=== PATIENT | male | born 1955 | race American Indian/Alaskan Native ===

== ENCOUNTER 2017-03-17 12:45 | Inpatient (IN) | payer MEDICAID ==
[2017-03-17 13:52] LABS: Basophils % (Auto) 0.5 % (0.0-1.8); Eosinophils % (Auto) 0.5 % (0.0-4.3); Hematocrit 43.5 % (35.5-45.6); Mean Corpuscular HGB Conc 34 % (32-34); Mean Corpuscular Hemoglobin 32 pg (28-32); Mean Corpuscular Volume 94 fl (84-94); Platelet Count 152 K/mm3 (140-440); Red Blood Count 4.62 M/mm3 (3.65-5.03); Red Cell Distribution Width 14.4 % (13.2-15.2); White Blood Count 7.9 K/mm3 (4.5-11.0)
[2017-03-17 14:15] LABS: Anion Gap 21 mmol/L; Blood Urea Nitrogen 14 mg/dL (9-20); Carbon Dioxide 21 mmol/L (22-30); Chloride 102.2 mmol/L (98-107); Glucose 97 mg/dL (75-100); Potassium 4.2 mmol/L (3.6-5.0); Sodium 140 mmol/L (137-145)
--- NOTE | 2017-03-17 14:16 | Emergency Department Report ---
<SHELBY HAYWOOD - Last Filed: 03/17/17 19:14> ED Seizure HPI - General Chief Complaint: Seizure Stated Complaint: SEIZURE Time Seen by Provider: 03/17/17 14:11 - Related Data Home Medications Medication Instructions Recorded Confirmed Last Taken No Known Home Medications [No 03/17/17 03/17/17 Unknown Reported Home Medications] Allergies Allergy/AdvReac Type Severity Reaction Status Date / Time No Known Allergies Allergy Unverified 03/17/17 13:12 ED Review of Systems ROS: Stated complaint: SEIZURE Other details as noted in HPI ED Past Medical Hx - Medications Home Medications: Home Medications Medication Instructions Recorded Confirmed Last Taken Type No Known Home Medications [No 03/17/17 03/17/17 Unknown History Reported Home Medications] ED Course Vital Signs 03/17/17 03/17/17 03/17/17 12:56 14:55 15:00 Temperature 98.5 F 98.7 F Pulse Rate 68 61 68 Respiratory 16 16 16 Rate Blood Pressure 142/93 Blood Pressure 165/103 151/106 [Right] O2 Sat by Pulse 100 100 96 Oximetry 03/17/17 03/17/17 03/17/17 17:11 18:00 18:42 Temperature 99.6 F Pulse Rate 67 60 Respiratory 12 14 Rate Blood Pressure Blood Pressure 156/81 165/99 [Right] O2 Sat by Pulse 97 98 98 Oximetry 03/17/17 03/17/17 03/17/17 19:01 20:00 21:00 Temperature Pulse Rate 64 Respiratory 16 Rate Blood Pressure 161/76 156/87 Blood Pressure [Right] O2 Sat by Pulse 97 96 97 Oximetry 03/17/17 22:00 Temperature Pulse Rate Respiratory Rate Blood Pressure 167/85 Blood Pressure [Right] O2 Sat by Pulse 97 Oximetry - Reevaluation(s) Reevaluation #1: 03/17/17 17:31 Patient was signed out to me by Dr. Richardson at 4 PM for follow-up of CAT scan. Patient and family the description of the seizure-like event was most consistent with a seizure. Patient started staring off into space and then had whole-body contractions and then was very confused afterwards as well as incontinent of urine. He slowly came around and started making more sense while in the emergency department. 03/17/17 17:32 At 5 PM the patient started having another very brief seizure-like event versus staring off into space. This appeared to have ended by the time I came to the patient however he was unable to follow commands and was not making sense. He did slowly start improving however since his second seizure 2 mg of Ativan was ordered IV. CT of the head read is still pending. We will plan to admit the patient for new onset seizure pending CT scan read. Reevaluation #2: 03/17/17 18:04 Patient is alert and oriented 2 now. Follows commands appropriately. Still a little confused and postictal. 03/17/17 19:15 CT negative, admitted ED Medical Decision Making - Lab Data Result diagrams: 03/17/17 13:38 03/17/17 13:38 Critical care attestation.: If time is entered above; I have spent that time in minutes in the direct care of this critically ill patient, excluding procedure time. ED Disposition Clinical Impression: New onset seizure Disposition: OP ADMITTED IP TO THIS HOSP Is pt being admited?: Yes Does the pt Need Aspirin: No Condition: Serious Time of Disposition: 18:56 (Spoke to Dr. Coreas, will admit) <CHERYLE RICHARDSON I. - Last Filed: 03/18/17 13:35> ED Seizure HPI - General Source: EMS Mode of arrival: Stretcher Limitations: No Limitations - History of Present Illness Initial Comments: She is a 61-year-old male with no past medical history presenting with seizure. As per the who is at the bedside she reports they were sitting in bed watching TV when she looked over and the patient was looking off into space and then started having a seizure consisting of tonic-clonic movement of all limbs with associated urinary incontinence. Pt is now c/o bilateral temporal WILSON and occipital WILSON. Pt reports he's never had a seizure before and has been feeling his normal self prior to today. Pt does report he did have a bunionectomy 4 months ago and his foot is in the healing process for which he follows with a splitter hand. Otherwise no fevers, chills, dizziness, vision changes, hearing changes, nausea, vomiting, diarrhea, chest pain, trace of breath, abdominal pain , dysuria, back pain, travel, or sick contacts ED Review of Systems Comment: All other systems reviewed and negative ED Past Medical Hx - Past Medical History Previous Medical History?: No - Surgical History Past Surgical History?: Yes Additional Surgical History: bunyon - Social History Smoking Status: Never Smoker Substance Use Type: None ED Physical Exam - General Limitations: No Limitations General appearance: alert, in no apparent distress - Head Head exam: Present: atraumatic, normocephalic - Eye Eye exam: Present: normal appearance, PERRL, EOMI. Absent: scleral icterus, conjunctival injection - ENT ENT exam: Present: mucous membranes moist - Neck Neck exam: Present: normal inspection - Respiratory Respiratory exam: Present: normal lung sounds bilaterally. Absent: respiratory distress - Cardiovascular Cardiovascular Exam: Present: regular rate, normal rhythm. Absent: systolic murmur, diastolic murmur, rubs, gallop - GI/Abdominal GI/Abdominal exam: Present: soft, normal bowel sounds - Rectal Rectal exam: Present: deferred - Extremities Exam Extremities exam: Present: full ROM, other (Pt is s/p L bunionectomy, healing wound of the dorsum of the L foot with antibiotic ointment applied, no signs of cellulitis). Absent: normal inspection, tenderness, pedal edema - Back Exam Back exam: Present: normal inspection - Neurological Exam Neurological exam: Present: alert, oriented X3, CN II-XII intact. Absent: motor sensory deficit - Psychiatric Psychiatric exam: Present: normal affect, normal mood - Skin Skin exam: Present: warm, dry, intact, normal color. Absent: rash ED Medical Decision Making - Lab Data Result diagrams: 03/18/17 06:29 03/17/17 13:38 - EKG Data -: EKG Interpreted by Me (time 13:27) EKG shows normal: sinus rhythm (sinus rhythm with shortened VT interval), axis, intervals (QTC 431 ms), ST-T waves (no ST changes, no STEMI) Rate: normal (66 bpm) ED Disposition Is pt being admited?: Yes
[2017-03-17 14:54] LABS: Bilirubin,Urine NEG (Negative); Blood,Urine MOD (Negative); Ketones,Urine NEG (Negative); Leukocyte Esterase,Urine NEG (Negative); Mucus,Urine FEW /HPF; Nitrite,Urine NEG (Negative); Protein,Urine <15 mg/dL mg/dL (Negative); RBC,Urine < 1.0 /HPF (0.0-6.0); Urobilinogen,Urine < 2.0 mg/dL (<2.0)
[2017-03-17 14:56] LABS: WBC,Urine < 1.0 /HPF (0.0-6.0)
[2017-03-17] MEDS ORDERED: TYLENOL PO ONE (16:15)
[2017-03-17] MEDS ORDERED: ATIVAN ONE (17:02)
[2017-03-17] MEDS ORDERED: ATIVAN IV ONE (17:10)
--- NOTE | 2017-03-17 18:34 | Cat Scan Report ---
FINAL REPORT EXAM: CT HEAD/BRAIN WO CON HISTORY: new seizure TECHNIQUE: CT head without contrast PRIORS: None. FINDINGS: No acute intra-axial or extra-axial hemorrhage is identified. There is no evidence of midline shift or mass effect. The ventricles and sulci are within normal limits. Granado-white matter differentiation is intact. No acute parenchymal abnormalities seen. Bony calvarium is grossly intact. Visualized portions of the mastoids and paranasal sinuses are unremarkable. IMPRESSION: Negative CT head
--- NOTE | 2017-03-17 21:34 | Event Note ---
Date: 03/17/17 See H/p in reports New Onset seizures
[2017-03-17] MEDS ORDERED: DULCOLAX PR PRN (21:35)
[2017-03-17] MEDS ORDERED: TYLENOL PO PRN (21:35)
[2017-03-17] MEDS ORDERED: MILK OF MAGNESIA PO PRN (21:35)
[2017-03-17] MEDS ORDERED: DILAUDID IV PRN (21:35)
[2017-03-17] MEDS ORDERED: ZOFRAN IV PRN (21:35)
[2017-03-17] MEDS: KEPPRA 750 MG in D5W 100 ML IV SCH (23:20)
[2017-03-17] MEDS: D5NS 1,000 ML IV SCH (23:24)
--- NOTE | 2017-03-18 00:34 | Admit Criteria Form ---
Admission Criteria Documentation: SEIZURE Clinical Indications for Admission to Inpatient Care (Place 'X' for any and all applicable criteria): Admission is indicated for seizure and ANY ONE of the following(1)(2)(3)(4)(5): [ ]I. Inpatient admission required rather than observation care (Also use Seizure: Observation Care Criteria as appropriate) because of ANY ONE of the following: [ ]a) Altered mental status that is severe or persistent [ ]b) New focal neurologic deficit that is severe or persistent [ ]c) Metabolic disorder (eg, hypoglycemia, hyponatremia) that is severe or persistent [ ]d) Recurrent seizure [ ]e) Outpatient antiseizure regimen cannot be established (eg , patient cannot tolerate medication, initiation requires inpatient care) [ ]f) Need for ongoing intravenous infusion of antiseizure medication [ ]g) Cardiac arrhythmias of immediate concern [ ]h) Cerebral bleeding, hydrocephalus, or vasospasm monitoring (14) [ ]i) Increased intracranial pressure or cerebral edema monitoring (15) [ ]j) Other treatment or monitoring requiring inpatient admission [X ]II. Status epilepticus [A] or repetitive seizures not controlled with emergent treatment (6)(8) [ ]III. Brain disorder (eg, tumor, edema, and hydrocephalus) that requiring monitoring or intervention available only at inpatient level of care. [ ]IV. Brain insult (eg, severe trauma, stroke, drug toxicity, or withdrawal) that requires monitoring or intervention available only at inpatient level of care (10)(11) Extended stay beyond goal length of stay may be needed for (22) [ ]a) Complications of status epilepticus [ ]b) Refractory status epilepticus [ ]c) Etiology-specific therapy for conditions such as SSDS MK 2 ADVANCED OPERATOR infection, head injury,eclampsia, severe metabolic abnormalities, and brain tumor [ ]d) Residual neurologic damage, [ ]e) Initiation of significant change to anticonvulsant treatment [ ]f) Older patients (65 years or older) [ ]g) Patient requiring intubation (eg, to protect airway) The original Edictive content created by [employer] has been revised. The portions of the content which have been revised are identified through the use of italic text or in bold, and [facility] has neither reviewed nor approved the modified material. All other unmodified content is copyright [facility] [employer]. Please see references footnoted in the original [facility] edition 2016 Admission Criteria Met: Yes
[2017-03-18 07:29] LABS: Basophils % (Auto) 0.2 % (0.0-1.8); Eosinophils % (Auto) 0.9 % (0.0-4.3); Hematocrit 42.2 % (35.5-45.6); Hemoglobin 14.7 gm/dl (11.8-15.2); Mean Corpuscular HGB Conc 35 % (32-34); Mean Corpuscular Hemoglobin 32 pg (28-32); Mean Corpuscular Volume 92 fl (84-94); Platelet Count 155 K/mm3 (140-440); Red Blood Count 4.58 M/mm3 (3.65-5.03); Red Cell Distribution Width 14.3 % (13.2-15.2); White Blood Count 8.8 K/mm3 (4.5-11.0)
--- NOTE | 2017-03-18 08:34 | History and Physical Report ---
CHIEF COMPLAINT: New onset seizures. HISTORY OF PRESENT ILLNESS: A 61-year-old male with no significant past medical history, comes in for seizures. Apparently, the seizure happened at home in the presence of his . The couple were watching TV and the patient started having tonic-clonic seizures. It lasted for about a minute. Some tongue biting, also had headache. The patient never had a seizure before. ____ alcohol withdrawal. The patient had a bunionectomy on the left foot 2 months ago. No fever, no chills, no recent travel, no shortness of breath. In the ER, the patient had a witnessed seizure by the ER physician. It was also tonic-clonic, but not as violent as it happened at home. PAST MEDICAL HISTORY: No significant past medical history. PAST SURGICAL HISTORY: Bunionectomy. SOCIAL HISTORY: Does not smoke. No alcohol, no recreational drugs. HOME MEDICATIONS: None. REVIEW OF SYSTEMS: CONSTITUTIONAL: No fever, no chills, no weight loss or weight gain. HEENT: No sore throat. No postnasal drip. CARDIOVASCULAR AND RESPIRATORY SYSTEMS: No shortness of breath, no chest pain, no palpitations. No cough. GASTROINTESTINAL: No nausea, no vomiting, no diarrhea. MUSCULOSKELETAL: No joint pain. CENTRAL NERVOUS SYSTEM: Seizures new onset x 2 today. No syncope. SKIN: No rashes. HEMATOLOGIC: No easy bruising. PSYCHIATRIC: No depression. PHYSICAL EXAMINATION: GENERAL: Elderly male, post-ictal. VITAL SIGNS: Significant for blood pressure of 161/76, temperature of 99.4, pulse of 64, respirations are 16. HEENT: Unremarkable. Pupils equal and reactive. NECK: Supple, no lymphadenopathy, no thyromegaly. LUNGS: Clear to auscultation and percussion. Good air entry. CARDIOVASCULAR: S1, S2 heard. No gallop, no murmur, no rub. Apical impulse in left fifth intercostal space and midclavicular line. ABDOMEN: Soft and benign. No hepatosplenomegaly. No guarding, no rigidity. Hernial orifices are normal. EXTREMITIES: Good pedal pulses. No pedal edema. CENTRAL NERVOUS SYSTEM: Alert and status postictal. NEUROLOGIC: No focal deficits. Mild lethargic. SKIN: Normal. LABORATORY DATA: Significant for white count of 7900, H and H is 15.0 and 43.5, platelet count is 152,000, bicarbonate is 21, BUN and creatinine 13 and 1.0. Sodium is 140, potassium is 4.2, chloride is 102. Urine is negative. DIAGNOSTIC DATA: CAT scan of the head was negative. CAT scan of the neck was negative. The bony calvarium is grossly intact. EKG shows sinus rhythm. ASSESSMENT AND PLAN: New onset seizure disorder. The patient started on intravenous Keppra 750 q.12. The patient will be transferred to ____. Neurology consult requested. No exacerbating factors found. Deep venous thrombosis prophylaxis, Lovenox 40 mg subcutaneous daily. JOB# [id number] VSHiram/JENNIFER
--- NOTE | 2017-03-18 09:19 | Progress Note ---
Assessment and Plan Assessment and plan: New onset seizures. May be related to alcohol withdrawal. Patient drinks about 2 beers every day and last drink was 1-2 days prior to seizure episode. Started on Keppra iv. We will however do MRI brain to rule out structural etiology. Neurology consulted. Seizure precautions. Alcohol withdrawal seizure, possibly. CIWA protocol with Ativan. Give iv fluid, Thiamine,Folic acid. Alcohol abuse. He drinks about 2 bottles of beer daily. I discussed with him importance of quitting DVT prophylaxis with heparin FULL CODE STATUS History Interval history: Admitted because of new-onset seizures, no more seizures since admitted Hospitalist Physical - Physical exam Narrative exam: Appearance: Not in acute distress, HEENT: normocephalic, atraumatic Neck : supple, no JVD Lungs: Clear to auscultation bilaterally, no crackles or wheeze Heart : S1 and S2 regular, no murmurs, rubs or gallop Abdomen: soft, non-tender, non-distended, normal bowel sounds Extremities: bilateral foot and leg ulcers,chronic. No clubbing or cyanosis Neuro: Awake alert oriented 3, no focal neurological signs Psych: normal mood - Constitutional Vitals: Temp Pulse Resp BP Pulse Ox 99.2 F 67 18 152/96 99 03/18/17 08:00 03/18/17 08:00 03/18/17 08:00 03/18/17 08:00 03/18/17 08:00 Results - Labs CBC & Chem 7: 03/18/17 06:29 03/17/17 13:38 Labs: Laboratory Last Values WBC 8.8 K/mm3 (4.5-11.0) 03/18/17 06:29 RBC 4.58 M/mm3 (3.65-5.03) 03/18/17 06:29 Hgb 14.7 gm/dl (11.8-15.2) 03/18/17 06:29 Hct 42.2 % (35.5-45.6) 03/18/17 06:29 MCV 92 fl (84-94) 03/18/17 06:29 MCH 32 pg (28-32) 03/18/17 06:29 MCHC 35 % (32-34) H 03/18/17 06:29 RDW 14.3 % (13.2-15.2) 03/18/17 06:29 Plt Count 155 K/mm3 (140-440) 03/18/17 06:29 Lymph % (Auto) 27.0 % (13.4-35.0) 03/18/17 06:29 Wise % (Auto) 10.6 % (0.0-7.3) H 03/18/17 06:29 Eos % (Auto) 0.9 % (0.0-4.3) 03/18/17 06:29 Baso % (Auto) 0.2 % (0.0-1.8) 03/18/17 06:29 Lymph # 2.4 K/mm3 (1.2-5.4) 03/18/17 06:29 Wise # 0.9 K/mm3 (0.0-0.8) H 03/18/17 06:29 Eos # 0.1 K/mm3 (0.0-0.4) 03/18/17 06:29 Baso # 0.0 K/mm3 (0.0-0.1) 03/18/17 06:29 Seg Neutrophils % 61.3 % (40.0-70.0) 03/18/17 06:29 Seg Neutrophils # 5.4 K/mm3 (1.8-7.7) 03/18/17 06:29 Sodium 140 mmol/L (137-145) 03/17/17 13:38 Potassium 4.2 mmol/L (3.6-5.0) 03/17/17 13:38 Chloride 102.2 mmol/L (98-107) 03/17/17 13:38 Carbon Dioxide 21 mmol/L (22-30) L 03/17/17 13:38 Anion Gap 21 mmol/L 03/17/17 13:38 BUN 14 mg/dL (9-20) 03/17/17 13:38 Creatinine 1.0 mg/dL (0.8-1.5) 03/17/17 13:38 Estimated GFR > 60 ml/min 03/17/17 13:38 BUN/Creatinine Ratio 14.00 % 03/17/17 13:38 Glucose 97 mg/dL (75-100) 03/17/17 13:38 POC Glucose 94 (70-105) 03/17/17 12:59 Hemoglobin A1c 4.6 % (4-6) 03/17/17 13:38 Calcium 9.0 mg/dL (8.4-10.2) 03/17/17 13:38 Urine Color Straw (Yellow) 03/17/17 14:16 Urine Turbidity Clear (Clear) 03/17/17 14:16 Urine pH 5.0 (5.0-7.0) 03/17/17 14:16 Ur Specific [place] 1.011 (1.003-1.030) 03/17/17 14:16 Urine Protein <15 mg/dl mg/dL (Negative) 03/17/17 14:16 Urine Glucose (UA) Neg mg/dL (Negative) 03/17/17 14:16 Urine Ketones Neg mg/dL (Negative) 03/17/17 14:16 Urine Blood Mod (Negative) 03/17/17 14:16 Urine Nitrite Neg (Negative) 03/17/17 14:16 Urine Bilirubin Neg (Negative) 03/17/17 14:16 Urine Urobilinogen < 2.0 mg/dL (<2.0) 03/17/17 14:16 Ur Leukocyte Esterase Neg (Negative) 03/17/17 14:16 Urine WBC (Auto) < 1.0 /HPF (0.0-6.0) 03/17/17 14:16 Urine RBC (Auto) < 1.0 /HPF (0.0-6.0) 03/17/17 14:16 U Epithel Cells (Auto) < 1.0 /HPF (0-13.0) 03/17/17 14:16 Urine Mucus Few /HPF 03/17/17 14:16
[2017-03-18] MEDS ORDERED: ATIVAN IV PRN ×3 (09:20)
--- NOTE | 2017-03-18 09:50 | XRay Report ---
AP CHEST :03/17/17 CLINICAL: Difficulty breathing. COMPARISON:None. FINDINGS: Normal heart and pulmonary vasculature. The lungs are normally expanded and clear. The bones and soft tissues are normal. IMPRESSION: Normal.
[2017-03-18] MEDS: FOLVITE PO SCH (10:14)
[2017-03-18] MEDS: VITAMIN B-1 PO SCH (10:14)
[2017-03-18] MEDS: KEPPRA 750 MG in D5W 100 ML IV SCH ×2 (10:19→21:49)
[2017-03-18 11:06] LABS: Phosphorous 2.9 mg/dL (2.5-4.5)
[2017-03-18] MEDS: D5NS 1,000 ML IV SCH ×2 (11:21→21:47)
[2017-03-18] MEDS: HEPARIN SUB-Q SCH ×2 (14:16→21:53)
[2017-03-18 18:57] LABS: Urine Drugs of Abuse Note Disclamer
[2017-03-19] MEDS: HEPARIN SUB-Q SCH (06:38)
[2017-03-19] MEDS: D5NS 1,000 ML IV SCH (08:24)
--- NOTE | 2017-03-19 10:45 | Magnetic Resonance Report ---
MRI BRAIN WITH AND WITHOUT CONTRAST INDICATION: New onset seizures. COMPARISON: 03/17/[address] FINDINGS: Multiplanar and multisequence MRI of the brain obtained before and after 12 ml Multihance intravenously. Motion artifact partly degrades exam. Symmetric, age-appropriate ventricles and sulci with moderate periventricular and numerous white matter FLAIR and T2 weighted hyperintensities/small vessel ischemic disease with few small lacunar infarcts as 3 mm right ganglionic. Subtle acute restricted diffusion in the right caudate nucleus questioned periventricular as on axial series 4, images 20-22, slightly dark on ADC. No acute hemorrhage, mass effect or midline shift. No abnormal extra axial masses or fluid collections. Normal major intracranial vascular flow voids. No focal suspicious focal enhancement, to the extent assessed. Normal posterior fossa with preserved basilar cisterns and symmetric seventh and eighth nerve complexes. Normal eye globes. Right mastoiditis and left more than right ethmoid sinusitis again noted as also hypoplastic/aplastic left frontal sinus. Grossly clear remainder imaged paranasal sinuses and left mastoid air cells. Normal midline structures without evidence of Chiari malformation. Cervical spondylosis. CONCLUSION: 1. Nonspecific right caudate nucleus periventricular MRI signal, not excluded for subacute ischemia in an appropriate setting versus artifact. Please correlate. 2. Other findings, including right mastoiditis and ethmoid sinusitis. Thank you for the opportunity to participate in this patient's care.
[2017-03-19] MEDS ORDERED: NORVASC PO SCH (11:00)
--- NOTE | 2017-03-19 11:00 | Discharge Summary ---
Providers - Providers Date of Admission: 03/17/17 21:35 Date of discharge: 03/19/17 Attending physician: JAMES FREDERICK 03/17/17 21:44 Consult to Physician [CONS] Routine Consulting Provider: [employer] Reason For Exam: seizures- new onset Place consult to:: sumit Notified:: 0400 Phone number called:: [phone] Was contact made?: No Comment:: message left Primary care physician: DATA ANALYSIS MANAGER Hospitalization Condition: Good Disposition: DISCHARGED TO HOME OR SELFCARE - Discharge Diagnoses (1) New onset seizure Status: Acute Core Measure Documentation - Palliative Care Palliative Care/ Comfort Measures: Not Applicable - Core Measures Any of the following diagnoses?: none Exam - Constitutional Vitals: Temp Pulse Resp BP Pulse Ox 98.6 F 56 L 20 160/102 99 03/19/17 08:13 03/19/17 08:13 03/19/17 08:13 03/19/17 08:13 03/19/17 08:13 Plan Activity: no driving until cleared by PCP Diet: low fat, low salt Additional Instructions: 1. Follow up with Primary care physician at [facility] in 1 week. 2. No driving for 6 months and until cleared by physician Follow up with: PRIMARY CARE, [Primary Care Provider] - 3-5 Days Prescriptions: amLODIPine [Norvasc] 5 mg PO QDAY #30 tablet Folic Acid [Folvite] 1 mg PO QDAY #30 tablet Thiamine [Vitamin B-1] 100 mg PO QDAY #30 tablet
[2017-03-19] MEDS: VITAMIN B-1 PO SCH (11:11)
[2017-03-19] MEDS: FOLVITE PO SCH (11:11)
[2017-03-19] MEDS: KEPPRA 750 MG in D5W 100 ML IV SCH ×2 (11:21→12:10)
--- NOTE | 2017-03-19 11:42 | Consultation ---
History of Present Illness Consult date: 03/19/17 Requesting physician: JAMES FREDERICK Reason for Consult: seizure Chief complaint: seizure History of present illness: 61 YO M Hx EtOH abuse 1-2 large beers per day/Q2 days p/w witnessed GTC w/ LOC by on 03/17 @ 11 AM lasting 1-2 mins. He last had EtOh 2 days prior and affirms feeling generally unwell with slight tremor and feverish although no fever on presentation. There were no clear aggravating, relieving or temporal factors. Severity such to cause LOC. Pt denies personal hx of head trauma, childhood or adult seizures, meningitis or encephalitis. Similarly pt does not have a FHx of seizure d/o. Past History Past Medical History: No medical history Past Surgical History: No surgical history Social history: , lives with family, alcohol abuse (1-2 large beers/day or Q2 days). denies: smoking Family history: hypertension Medications and Allergies Allergies Allergy/AdvReac Type Severity Reaction Status Date / Time No Known Allergies Allergy Unverified 03/17/17 13:12 Home Medications Medication Instructions Recorded Confirmed Last Taken Type No Known Home Medications [No 03/17/17 03/17/17 Unknown History Reported Home Medications] Active Meds: Active Medications Acetaminophen (Tylenol) 650 mg PO Q4H PRN PRN Reason: Pain MILD(1-3)/Fever >100.5/WILSON Amlodipine Besylate (Norvasc) 5 mg PO QDAY [facility] Last Admin: 03/19/17 11:16 Dose: 5 mg Bisacodyl (Dulcolax) 10 mg RI QDAY PRN PRN Reason: Constipation unrelieved by MOM Folic Acid (Folvite) 1 mg PO QDAY [facility] Last Admin: 03/19/17 11:11 Dose: 1 mg Heparin Sodium (Porcine) (Heparin) 5,000 unit SUB-Q Q8HR [facility] Last Admin: 03/19/17 06:38 Dose: 5,000 unit Hydromorphone HCl (Dilaudid) 0.5 mg IV Q3H PRN PRN Reason: Pain , Severe (7-10) Dextrose/Sodium Chloride (D5ns) 1,000 mls @ 100 mls/hr IV DIRECT [facility] Last Admin: 03/19/17 08:24 Dose: 100 mls/hr Levetiracetam 750 mg/ Dextrose 107.5 mls @ 400 mls/hr IV Q12HR [facility] Last Admin: 03/19/17 11:21 Dose: 400 mls/hr Lorazepam (Ativan) 2 mg IV Q1H PRN PRN Reason: CIWA-Ar 8-15 Last Admin: 03/18/17 21:46 Dose: 2 mg Lorazepam (Ativan) 4 mg IV Q1H PRN PRN Reason: CIWA-Ar 16-25 Lorazepam (Ativan) 4 mg IV Q15MIN PRN PRN Reason: CIWA-Ar >25 Stop: 03/23/17 09:21 Magnesium Hydroxide (Milk Of Magnesia) 30 ml PO Q4H PRN PRN Reason: Constipation Ondansetron HCl (Zofran) 4 mg IV Q8H PRN PRN Reason: N/V unrelieved by Reglan Thiamine HCl (Vitamin B-1) 100 mg PO QDAY [facility] Last Admin: 03/19/17 11:11 Dose: 100 mg Review of Systems All systems: negative Constitutional: fever, sweats, fatigue, weakness, malaise, lethargy Neurological: seizures, syncope, no transient paralysis, no paralysis, no weakness, no parathesias, no numbness, no vertigo, no headaches, no migraines, no aphasia, no change in speech, no change in mentation, no confusion, no memory loss, no changes in smell/taste, no balance difficulties, no gait dysfunction, no motor disturbance, no sensory deficit, no double vision Physical Examination - Vital Signs Vital Signs: Vital Signs Temp Pulse Resp BP Pulse Ox 98.5 F 68 16 142/93 100 03/17/17 12:56 03/17/17 12:56 03/17/17 12:56 03/17/17 12:56 03/17/17 12:56 - Constitutional General appearance: comfortable - EENT EENT: Present: ATNC, PERRL, mucous membranes moist, hearing intact, vision intact - Respiratory Respiratory: Present: chest non-tender, normal breath sounds, no respiratory distress - Cardiovascular Cardiovascular: Present: regular rate Extremities: Present: no peripheral edema bilatateraly, no clubbing, cyanosis, no inflammation, no ischemia or petechiae - Gastrointestinal Gastrointestinal: Present: normoactive bowel sounds, soft, non-distended - Integumentary Integumentary: Present: normal - Neurologic Cranial nerve examination: PERRL, EOMI, VFF, V1/V2/V3 grossly intact, face symmetric, tongue midline, intact, intact shoulder shrug, Intact Vestibulo- ocular r, intact corneal reflex, normal palatal elevation Speech examination: intact Sensorimotor examination: intact Detailed motor examination: full strength in all aidan Motor examination - right side: 5/5: biceps, triceps, wrist flexion, wrist extension, batch tester, hip flexors, knee extensors, dorsiflexion, toe extension (EHL) , plantarflexion Motor examination - left side: 5/5: biceps, triceps, wrist flexion, wrist extension, batch tester, hip flexors, knee extensors, dorsiflexion, toe extension (EHL) , plantarflexion Detailed sensory examination: intact, light touch, temperature Reflex and gait examination: intact Reflexes: 1+: ankle, 2+: bicep, knee, tricep - Musculoskeletal Musculoskeletal: Present: no fluid collection, no pain, normal range of motion - Psychiatric Psychiatric: Present: mood/affect appropriate, cooperative Results - Laboratory Findings CBC and BMP: 03/18/17 06:29 03/17/17 13:38 Abnormal Lab Findings: Abnormal Labs 03/18/17 06:29 MCHC 35 H Trigg % (Auto) 10.6 H Trigg # 0.9 H Assessment and Plan 61 YO M Hx EtOH abuse 1-2 large beers per day/Q2 days p/w witnessed GTC w/ LOC by after last EtOH consumption 2 days prior and affirmed withdrawal symptomatology. Pt has no seizure risk factors otherwise and is back to baseline. Neuro exam symmetric nonfocal intact w/o deficits. MRI Brain nonacute subcortical T2 lesions consistent with microvascular ischemic disease. I suspect first lifetime provoked seizure d/t Alcohol withdrawal Plan and Recommendation: 1. Telemetry bed w/ Q4 hour neuro checks & Sz precautions 2. Labs: Serum/Urine Tox, UA/UCx, Electrolytes especially Na, Ca, Mg, and Glucose, TSH/Vit B12/Ammonia and correct as necessary 3. Cont Infectious work up/medical management for UTI, PNA, cellulitis, bacteremia, etc. 4. Avoid hyponatremia, hypo/hyper-calcemia, hypo/hyperglycemia, acidosis, hypoxia/hypoxemia, hypercarbia/hypercapnia 5. Avoid institution of any psychoactive medications (e.g. antihistamines, anticholinergics, BZD, hypnotics, opiates) as able unless low doses of low potency antipsychotic needed for behavioral issues complicating medical care 6. AED therapy: Defer @ this time but will need to re-eval if recurrent seizure or pt able to reflect hx of prior AED use. 7. Avoid meds that can lower sz threshold e.g. Tramadol, fluroquinolones, carbapenems 8. Supplement Thiamine, Folate and cont CIWA Protocol 9. Pt advised of [place] driving regulations: report date of presumed Seizure/ unexplained loss of consciousness/awareness spell to DMV, refrain from operating a motor vehicle for 6 months after this date, and avoid unsupervised activity particularly around water or heights 10. Neurologically clear for discharge once cleared by other medical services and if pt remains stable as resolved fully to baseline w/o recurrent seizure for 24 hrs.
[2017-03-19 12:20] VITALS: BP 153/93
== END 2017-03-19 12:10 | disposition home or self-care (01) | DRG 898 ==
LOC: ED 12:45 → 3A 21:35
PROVIDERS: ADMIT Internal Medicine; ATTEND Internal Medicine
DX: F10.239 Alcohol dependence with withdrawal, unspecified (principal); Z82.49 Family history of ischemic heart disease and other diseases of the circulatory system; Z71.41 Alcohol abuse counseling and surveillance of alcoholic; G40.509 Epileptic seizures related to external causes, not intractable, without status epilepticus
CPT/HCPCS: 36415; 70450; 70553; 71010; 80048; 80307; 80320; 81001; 82962; 83036; 83735; 84100; 85025; 93005; 93010; 96374; A9577; G0480; J1644; J1953; J2060; J7042

== ENCOUNTER 2020-07-03 18:08 | Emergency (ER) | payer MEDICAID ==
[2020-07-03 18:21] VITALS: BP 106/59
[2020-07-03] MEDS ORDERED: KETOROLAC 30 MG/1 ML INJ IV ONE (20:10)
[2020-07-03] MEDS ORDERED: SULFAMETHOXAZOLE/TRIMETHOPRIM 800/160MG DS TAB PO ONE (20:10)
[2020-07-03 20:29] LABS: Hematocrit 28.4 % (35.5-45.6); Hemoglobin 9.3 gm/dl (11.8-15.2); Mean Corpuscular HGB Conc 33 % (32-34); Mean Corpuscular Volume 89 fl (84-94); Platelet Count 540 K/mm3 (140-440); Red Blood Count 3.18 M/mm3 (3.65-5.03); Red Cell Distribution Width 16.8 % (13.2-15.2)
[2020-07-03 20:51] LABS: Alanine Aminotransferase 24 units/L (7-56); Albumin 3.1 g/dL (3.9-5); Blood Urea Nitrogen 7 mg/dL (9-20); Calcium 8.9 mg/dL (8.4-10.2); Hemolysis Index 4
[2020-07-03 20:55] LABS: BUN/Creatinine Ratio 10
[2020-07-03] MEDS ORDERED: HYDROcodone/ACETAMINOPHEN 5-325 MG TAB PO ONE (20:57)
[2020-07-03] MEDS ORDERED: ONDANSETRON 4 MG ODT TAB PO ONE (20:59)
[2020-07-03 21:04] LABS: Basophils % (Manual) 0 % (0.0-1.8); Myelocytes # (Manual) 0.2 K/mm3; Total Cells Counted 100
[2020-07-03 21:05] LABS: Anisocytosis 1+; Platelet Estimate Consistent w Auto
--- NOTE | 2020-07-03 21:07 | Emergency Department Report ---
ED Extremity Problem HPI - General Chief complaint: Extremity Problem,Nontraumatic Stated complaint: PAIN IN LEGS Source: patient Mode of arrival: Wheelchair Limitations: No Limitations - History of Present Illness Initial comments: Patient is a 64-year-old -[place] male with a history of chronic alcohol and tobacco abuse who presents to the ED with complaint of acute onset persistent distal right lower leg stump pain for the last 1 week. Patient states that he is 1 week s/p right AKA amputation at [facility] and that he has been having pain since the surgery was performed at [facility]. Patient states that he was not told why he is right leg was amputated above his knee but only thing he remembers is that the EMS came and took him from his house with lower leg pain and swelling with chronic wounds but when he woke up from anesthesia he realized that his right leg has been amputated above his knee. Patient states that he stayed in [facility] for a few days and left AMA with no pain medication or prophylactic oral antibiotic prescriptions, nor follow-up in formation. Patient states that the pain has been persistent and worse in the last 2 days. Patient denies fever, chills, nausea, vomiting, chest pain, shortness of breath, cough, dizziness, syncope, numbness and tingling or weakness of lower extremities bilaterally. MD Complaint: extremity pain (right lower leg pain, s/p AKA 1 week ago) -: Sudden, week(s) (1) Location: right, lower extremity (AKA) History of Same: No -: Yes arthralgia Radiation: distal Severity scale (0 -10): 7 Quality: aching, sharp Consistency: constant Improves with: nothing Worsens with: nothing Associated Symptoms: denies other symptoms, arthralgias (right lower leg pain). denies: chest pain, shortness of breath, fever, myalgias - Related Data Previous Rx's Medication Instructions Recorded Last Taken Type Folic Acid [Folvite] 1 mg PO QDAY #30 tablet 03/19/17 Unknown Rx Thiamine [Vitamin B-1] 100 mg PO QDAY #30 tablet 03/19/17 Unknown Rx amLODIPine 5 mg PO QDAY #30 tablet 03/19/17 Unknown Rx Acetaminophen/Codeine [Tylenol 1 tab PO QHS PRN #10 tab 07/03/20 Unknown Rx /Codeine # 3 tab] Ibuprofen [Motrin] 600 mg PO Q8H PRN #30 tablet 07/03/20 Unknown Rx Sulfamethoxazole/Trimethoprim 1 each PO Q12H #20 tablet 07/03/20 Unknown Rx [Bactrim DS TAB] Allergies Allergy/AdvReac Type Severity Reaction Status Date / Time No Known Allergies Allergy Unverified 03/17/17 13:12 ED Review of Systems ROS: Stated complaint: PAIN IN LEGS Other details as noted in HPI Constitutional: denies: chills, fever Eyes: denies: eye pain, eye discharge, vision change ENT: denies: ear pain, throat pain Respiratory: denies: cough, shortness of breath, wheezing Cardiovascular: denies: chest pain, palpitations Endocrine: no symptoms reported Gastrointestinal: denies: abdominal pain, nausea, diarrhea Genitourinary: denies: urgency, dysuria Musculoskeletal: arthralgia (right lower leg pain, s/p AKA 1 week ago.), myalgia. denies: back pain, joint swelling Skin: denies: rash, lesions Neurological: denies: headache, weakness, paresthesias Psychiatric: denies: anxiety, depression Hematological/Lymphatic: denies: easy bleeding, easy bruising ED Past Medical Hx - Past Medical History Hx Congestive Heart Failure: No Hx Diabetes: No Hx Asthma: No Hx COPD: No Hx HIV: No - Surgical History Past Surgical History?: Yes Additional Surgical History: bunyon - Social History Smoking Status: Current Some Day Smoker Substance Use Type: Alcohol - Medications Home Medications: Home Medications Medication Instructions Recorded Confirmed Last Taken Type Folic Acid [Folvite] 1 mg PO QDAY #30 tablet 03/19/17 Unknown Rx Thiamine [Vitamin B-1] 100 mg PO QDAY #30 tablet 03/19/17 Unknown Rx amLODIPine 5 mg PO QDAY #30 tablet 03/19/17 Unknown Rx Acetaminophen/Codeine [Tylenol 1 tab PO QHS PRN #10 tab 07/03/20 Unknown Rx /Codeine # 3 tab] Ibuprofen [Motrin] 600 mg PO Q8H PRN #30 tablet 07/03/20 Unknown Rx Sulfamethoxazole/Trimethoprim 1 each PO Q12H #20 tablet 07/03/20 Unknown Rx [Bactrim DS TAB] ED Physical Exam - General Limitations: No Limitations General appearance: alert, in no apparent distress - Head Head exam: Present: atraumatic, normocephalic, normal inspection - Eye Eye exam: Present: normal appearance, PERRL, EOMI Pupils: Present: normal accommodation - ENT ENT exam: Present: normal exam, normal orophraynx, mucous membranes moist, TM's normal bilaterally, normal external ear exam - Neck Neck exam: Present: normal inspection, full ROM - Respiratory Respiratory exam: Present: normal lung sounds bilaterally. Absent: respiratory distress, wheezes, rales, rhonchi, chest wall tenderness, accessory muscle use, decreased breath sounds - Cardiovascular Cardiovascular Exam: Present: normal rhythm, tachycardia, normal heart sounds. Absent: systolic murmur, diastolic murmur, rubs, gallop - GI/Abdominal GI/Abdominal exam: Present: soft, normal bowel sounds. Absent: tenderness, guar ding, rebound, hyperactive bowel sounds, hypoactive bowel sounds, organomegaly - Extremities Exam Extremities exam: Present: normal inspection, full ROM, tenderness (Palpable distal right thigh tenderness, site for recent AKA; no swelling, erythema or discharge), normal capillary refill. Absent: pedal edema, joint swelling, calf tenderness - Back Exam Back exam: Present: normal inspection, full ROM. Absent: tenderness, CVA tenderness (R), muscle spasm, paraspinal tenderness, vertebral tenderness - Neurological Exam Neurological exam: Present: alert, oriented X3, CN II-XII intact, normal gait, reflexes normal - Psychiatric Psychiatric exam: Present: normal affect, normal mood - Skin Skin exam: Present: warm, dry, intact, normal color. Absent: rash ED Course Vital Signs 07/03/20 18:20 Temperature 98.2 F Pulse Rate 101 H Respiratory 20 Rate Blood Pressure 106/59 O2 Sat by Pulse 98 Oximetry ED Medical Decision Making - Lab Data Result diagrams: 07/03/20 20:16 07/03/20 20:16 - Medical Decision Making This is a 64-year-old -[place] male with a history of chronic alcohol and tobacco abuse who presents to the ED with complaint of acute onset persistent distal right lower leg stump pain for the last 1 week. Patient states that he is 1 week s/p right AKA amputation at [facility] and that he has been having pain since the surgery was performed at [facility]. Patient states that he was not told why he is right leg was amputated above his knee but only thing he remembers is that the EMS came and took him from his house with lower leg pain and swelling with chronic wounds but when he woke up from a nesthesia he realized that his right leg has been amputated above his knee. Patient states that he stayed in [facility] for a few days and left AMA with no pain medication or prophylactic oral antibiotic prescriptions, nor follow-up information. Patient states that the pain has been persistent and worse in the last 2 days. In the ED, patient is alert and oriented x3 and is not in distress. Patient however appears to be in pain. Patient was treated for pain in the ED and also given initial oral antibiotics in the ED. Lab test results were reviewed and are all nonactionable. Patient was discharged home on medications for pain and also prophylactic antibiotics and was advised to follow-up with either [facility] or Dr. Vincent orthopedic surgeon for further evaluation. Patient was advised return to the ED immediately if symptoms get worse. - Differential Diagnosis Surguical wound infection; Leg pain; wound care Critical care attestation.: If time is entered above; I have spent that time in minutes in the direct care of this critically ill patient, excluding procedure time. ED Disposition Clinical Impression: Pain of amputation stump of right lower extremity Disposition: DC- TO HOME OR SELFCARE Is pt being admited?: No Does the pt Need Aspirin: No Condition: Stable Instructions: Arthralgia (ED), Surgical Site Infections (ED), Wound Healing and Your Diet (ED) Additional Instructions: Take medication with food, drink plenty of fluids and follow-up with the orthopedic surgeon Dr. Vincent or [facility] for further evaluation. Return to the ED immediately if symptoms get worse. Prescriptions: Acetaminophen/Codeine [Tylenol /Codeine # 3 tab] 1 tab PO QHS PRN #10 tab PRN Reason: Pain , Severe (7-10) Sulfamethoxazole/Trimethoprim [Bactrim DS TAB] 1 each PO Q12H #20 tablet Ibuprofen [Motrin] 600 mg PO Q8H PRN #30 tablet PRN Reason: Pain Referrals: JM VINCENT MD [Staff Physician] - 3-5 Days Time of Disposition: 21:19 Print Language: BENGALI
== END 2020-07-03 21:39 | disposition home or self-care (01) ==
LOC: ED 18:08
DX: T87.89 Other complications of amputation stump (principal); F17.200 Nicotine dependence, unspecified, uncomplicated; Z98.890 Other specified postprocedural states; Z79.1 Long term (current) use of non-steroidal anti-inflammatories (NSAID); Z79.899 Other long term (current) drug therapy; Z89.611 Acquired absence of right leg above knee; Y83.5 Amputation of limb(s) as the cause of abnormal reaction of the patient, or of later complication, without mention of misadventure at the time of the procedure; Y92.89 Other specified places as the place of occurrence of the external cause
CPT/HCPCS: 36415; 80053; 85007; 85025; 96374; 99283; J1885; Q0162